=== PATIENT | female | born 2000 | race Caucasian/White ===

== ENCOUNTER 2019-07-29 15:10 | Outpatient (CLI) | payer OTHER ==
--- NOTE | 2019-07-29 16:19 | MRI ---
MRI LEFT KNEE 07/29/19 PROVIDED CLINICAL HISTORY: Acute left knee pain. FINDINGS: The anterior cruciate ligament, posterior cruciate ligament, medial collateral ligament and lateral c ollateral ligamentous complex demonstrate an intact MR appearance, as does the extensor mechanism. The medial and lateral menisci demonstrate no evidence for tear. No focal articular cartilage defect is apparent. The amount of fluid within the knee joint appears physiologic. No focal concerning regional marrow or muscular signal abnormality apparent. Small low grade chondroi d lesion within distal femoral metaphyseal region. IMPRESSION: No evidence for internal derangement. POS: [facility]
== END 2019-07-29 15:11 | disposition home or self-care (01) ==
LOC: SCSMRI 15:10
PROVIDERS: ATTEND Orthopaedic Surgery
DX: M25.562 Pain in left knee (principal)